=== PATIENT | male | born 1960 | race Two or more races ===

== ENCOUNTER → 2017-08-25 | Day surgery (SDC) | payer OTHER, SELFPAY ==
[~2017-08-25] MED LIST: AUGMENTIN 500-1 EACH PO; BENICAR20 MG PO; BUPIVACAINE 0.25%/EPI 30ML SDV INJ ONE; DEXAMETHASONE SOD PHOS INJ 4 MG/ML VIAL ONE; EPHEDRINE SULFATE INJ 50 MG/10 ML SYR ONE; FENTANYL CITRATE/PF 100MCG/2 ML INJ ONE; GELATIN SPONGE SZ 100 ONE; KETOROLAC TROMETHAMINE 30 MG/ML VIAL ONE; LEVAQUIN500 MG PO; LIDOCAINE HCL 1% 30ML-PF VIAL ONE; LIDOCAINE HCL 2% 30 ML TUBE ONE; LIDOCAINE HCL 2% LOCAL INJ 5 ML SDV VIAL INJ ONE; MIDAZOLAM HCL 2 MG/2 ML VIAL ONE; ONDANSETRON HCL INJ 2 MG/ML VIAL ONE; PLAVIX75 MG PO; PROPOFOL IV EMULSION 10 MG/ML 20 ML VIAL ONE; SEVOFLURANE INHAL SOLN 250 ML PEN BTL ONE; [UNRECOGNIZED DRUG - REMARK]
--- NOTE | 2017-08-25 13:26 | Operative Report ---
DATE OF PROCEDURE: August 25, 2017 PREOPERATIVE DIAGNOSIS: Anorectal fistula. POSTOPERATIVE DIAGNOSIS: Anorectal fistula. OPERATION PERFORMED: Anorectal fistulectomy. ANESTHESIA: General. COMPLICATIONS: None. ESTIMATED BLOOD LOSS: Minimal. DESCRIPTION OF PROCEDURE: With the patient lying in bed in the lithotomy position under good general anesthesia, the perineum was prepped with Betadine solution and draped in the usual manner. Examination revealed that at the 5 o'clock position there was a fistulous opening that when probed communicated easily to an opening at about the 6 o'clock position. The fistula was then slowly and carefully sharply opened and it was totally and completely filleted open. It included a few of the fibers of the sphincter but it did not totally include the sphincter. The fistula was totally opened and the cavity was then totally and completely debrided of the tissue. Hemostasis was then ascertained. The whole area was infiltrated with 1/4 percent Marcaine with epinephrine. Hemostasis was ascertained. A Gelfoam pack infected with Xylocaine was placed. A dressing was applied. The sponge, lap, needle count was correct. The patient tolerated the procedure well and returned to the recovery room in stable condition. Job#: [id number] CARLINE
== END | disposition home or self-care (01) ==
LOC: OR 10:17
PROVIDERS: ATTEND Surgery
DX: K60.5 Anorectal fistula (principal); I25.10 Atherosclerotic heart disease of native coronary artery without angina pectoris; I10 Essential (primary) hypertension; I49.1 Atrial premature depolarization; Z79.02 Long term (current) use of antithrombotics/antiplatelets; Z95.5 Presence of coronary angioplasty implant and graft
CPT/HCPCS: 46275; J1100; J1885; J2001; J2250; J2405

== ENCOUNTER → 2017-09-14 | Outpatient (CLI) | payer OTHER ==
[~2017-09-14] MED LIST changes: -BUPIVACAINE 0.25%/EPI 30ML SDV INJ ONE; -DEXAMETHASONE SOD PHOS INJ 4 MG/ML VIAL ONE; -EPHEDRINE SULFATE INJ 50 MG/10 ML SYR ONE; -FENTANYL CITRATE/PF 100MCG/2 ML INJ ONE; -GELATIN SPONGE SZ 100 ONE; -KETOROLAC TROMETHAMINE 30 MG/ML VIAL ONE; -LIDOCAINE HCL 1% 30ML-PF VIAL ONE; -LIDOCAINE HCL 2% 30 ML TUBE ONE; -LIDOCAINE HCL 2% LOCAL INJ 5 ML SDV VIAL INJ ONE; -MIDAZOLAM HCL 2 MG/2 ML VIAL ONE; -ONDANSETRON HCL INJ 2 MG/ML VIAL ONE; -PROPOFOL IV EMULSION 10 MG/ML 20 ML VIAL ONE; -SEVOFLURANE INHAL SOLN 250 ML PEN BTL ONE
--- NOTE | 2017-09-14 10:43 | Diagnostic Imaging Report ---
PROCEDURE:SP LUMBAR, COMPLETE MIN 4VW TECHNIQUE:AP, lateral, bilateral oblique and coned down views lumbar spine INDICATION:Low back pain COMPARISON:None. FINDINGS: 5 [id number] lumbar vertebral bodies. Vertebral body height is normal. Severe disc space narrowing from T12-L3, moderate narrowing L3-L4 and severe narrowing at L4-L5. Accompanying mild scoliosis and mild loss of lordosis. Facets are patent. CONCLUSION: Severe degenerative disc disease with near complete loss of disc space height at L1-L2, L3-L4 and L5-S1. Dictated by: Andrew Monteiro M.D. on 09/14/2017 at 10:45 Electronically approved by: Andrew Monteiro M.D. on 09/14/2017 at 10:45
== END ==
LOC: RAD 08:44
DX: M54.5 Low back pain (principal)
CPT/HCPCS: 72110

== ENCOUNTER → 2017-11-29 | Outpatient (CLI) | payer SELFPAY ==
--- NOTE | 2017-11-30 08:48 | Diagnostic Imaging Report ---
EXAMINATION: MRI of the lumbar spine without contrast HISTORY: Low back pain for last 4 months radiating mainly to the left lower extremities COMPARISON: None. TECHNIQUE: Sagittal T1, T2, STIR; axial T2 and proton density. FINDINGS: It is assumed that there are 5 lumbar vertebrae. Curvature/Alignment: Mild kyphotic malalignment from T12 to L2. Grade 1 retrolisthesis at L2-L3. Mild levoscoliosis centered at L2-L3. Vertebrae: No evidence of recent fracture, infection, or neoplasm. Chronic endplate degenerative changes from T10 to S1. Modic type I endplate degenerative changes at L2-L3 with prominent subchondral bone marrow edema. Conus: Normal, terminating at L2 Cauda equina: Unremarkable. Lower thoracic: Unremarkable. Paraspinal soft tissues: Unremarkable. Degenerative changes: Decreased disc height and T2 signal intensity as well as disc bulges and marginal endplate osteophytes through the lower thoracic and near entire lumbar spine. L1-L2: Spondylosis and facet arthroses. No stenoses L2-L3: Spondylosis and facet arthrosis. Mild foraminal narrowing. L3-L4: Mild facet arthroses. No stenoses L4-L5: Minimal symmetric disc pole and facet arthrosis. Minimal foramina narrowing. L5-S1: Spondylosis and facet arthrosis. Moderate left foraminal stenoses. IMPRESSION: 1. Mild thoracolumbar kyphoscoliosis as detailed above. 2. Grade 1 degenerative retrolisthesis at L2-L3. 3. Prominent Modic Type 1 endplate degenerative changes at L2-L3 with subchondral bone marrow edema. 4. Moderate degenerative foraminal stenoses on the left at L5-S1 and mild at L2-L3 as well as L4-L5 without evidence of nerve root compression. 5. Multilevel spondylosis without significant spinal canal stenosis. Signed by: Dr. Emelina Lewis M.D. on 11/30/2017 7:48 AM
== END ==
LOC: MRI 15:52
DX: M54.5 Low back pain (principal); M51.36 Other intervertebral disc degeneration, lumbar region
CPT/HCPCS: 72148

== ENCOUNTER → 2019-08-12 | Outpatient (CLI) | payer BC ==
--- NOTE | 2019-08-13 08:28 | Diagnostic Imaging Report ---
Examination: MRI SPINE CERVICAL WO CONTRAST History: Neck pain for 3 days. Comparison studies: None Technique: Sagittal T1, T2 and IR, axial T2 and axial gradient echo intravenous contrast: None Findings: Alignment: Straightening of normal lordosis. No scoliosis. Cervicomedullary junction: No abnormalities. Patent foramen magnum. Soft tissues: No T2 hyperintense inflammatory changes. Spinal cord: Normal in size and signal from the foramen magnum through T1. Vertebrae: No fractures, infection or neoplasm. Degenerative changes: C1-C2: No abnormalities. C2-C3: No abnormalities. C3-C4: Diffuse disc osteophyte complex, bilateral uncovertebral arthropathy and ligamentum flavum thickening result in severe canal stenosis and moderate bilateral foraminal narrowing. C4-C5: Asymmetric to the left disc osteophyte complex, bilateral uncovertebral arthropathy and ligamentum flavum thickening result in severe canal stenosis and severe bilateral foraminal narrowing. C5-C6: Asymmetric to the right disc osteophyte complex, bilateral uncovertebral arthropathy and ligamentum flavum thickening result in severe canal stenosis and severe right and mild left foraminal narrowing. C6-C7: Diffuse disc osteophyte complex, bilateral uncovertebral arthropathy and ligamentum flavum thickening result in mild canal stenosis and severe bilateral foraminal narrowing. C7-T1: Diffuse disc osteophyte complex, bilateral uncovertebral arthropathy and ligamentum flavum thickening result in mild canal stenosis and severe bilateral foraminal narrowing. IMPRESSION: 1. Degenerative change from C3-C4 through C7-T1 with severe canal stenosis from C3-C4 through C5-C6. 2. Severe bilateral foraminal stenosis at C4-C5, C6-C7, C7-T1 and on the right at C5-C6. Signed by: Dr. Anna Raines M.D. on 08/13/2019 8:25 AM
--- NOTE | 2019-08-13 08:43 | Diagnostic Imaging Report ---
Examination: MRI SPINE LUMBAR WO CONTRAST History: Low back pain radiating down the lower extremity for many years. Comparison studies: November 29, 2017 Technique: Sagittal, coronal and axial T2 , sagittal T1 and STIR; axial spin density oblique. Findings: Number of lumbar vertebral bodies: Five. Alignment: Normal lordosis. S shaped curvature, unchanged. Soft tissues: No T2 hyperintense inflammatory changes. Posterior paraspinal soft tissues and muscles: No abnormality. Lower thoracic cord: Normal in signal and morphology. The tip of the conus is at L1-L2. Cauda equina: No masses. No arachnoiditis. Vertebrae: No fractures, infection or neoplasm. Type I Modic change at T10 and T11, new from prior. Interval resolution of prior type I Modic change at L2 and L3. Degenerative changes: L1-L2: Unchanged asymmetric to the right disc bulge results in mild right foraminal narrowing. No left foraminal or canal stenosis. L2-L3: Unchanged diffuse disc bulge results in mild bilateral foraminal narrowing. No canal stenosis. L3-L4: New diffuse disc bulge, bilateral facet arthropathy and mild ligamentum flavum thickening result in moderate canal stenosis and mild bilateral foraminal narrowing. L4-L5: Unchanged right central disc protrusion superimposed on a diffuse disc bulge, bilateral facet arthropathy and mild ligamentum flavum thickening result in mild canal stenosis and mild bilateral foraminal narrowing. L5-S1: Unchanged asymmetric to the right disc bulge, bilateral facet arthropathy result in severe left foraminal narrowing. No right foraminal or canal stenosis. IMPRESSION: Interval progression of degenerative change at L3-L4 with new moderate canal stenosis when compared to prior lumbar spine MRI date November 29, 2017. Unchanged degenerative change at remaining lumbar levels with severe left foraminal narrowing at L5-S1. New type I Modic change at T10 and T11. Interval resolution of prior type I Modic change at L2 and L3. Signed by: Dr. Anna Raines M.D. on 08/13/2019 8:40 AM
== END ==
LOC: MRI 15:37
DX: M54.2 Cervicalgia (principal); M54.16 Radiculopathy, lumbar region
CPT/HCPCS: 72141; 72148